=== PATIENT | female | born 1970 | race Caucasian/White ===

== ENCOUNTER 2016-12-16 14:50 | Outpatient (CLI) | payer OTHER | END 2016-12-16 14:51 | disposition home or self-care (01) | DX: Z12.31 Encounter for screening mammogram for malignant neoplasm of breast (principal); N60.89 Other benign mammary dysplasias of unspecified breast ==

== ENCOUNTER 2017-05-28 07:46 | Outpatient (CLI) | payer OTHER ==
--- NOTE | 2017-05-28 14:37 | MRI Report ---
EXAM: RIGHT KNEE MRI WITHOUT CONTRAST EXAM DATE: 05/28/2017 08:46 AM. CLINICAL HISTORY: RIGHT KNEE PAIN. COMPARISON: None. TECHNIQUE: Multiplanar, multisequence T1-weighted and fluid-sensitive sequences of the knee without c ontrast. Other: None. FINDINGS: Bones: No fractures or subluxations. Patella martín. Tricompartmental osteoarthritis with small osteoph ytes, juxtaarticular reactive marrow edema in the lateral trochlea and medial tibial plateau. Focal r eactive subcortical edema is also present adjacent to the medial posterior meniscal root attachment. Mild edema in the fibular head, reactive to mild proximal tibiofibular joint osteoarthritis. No bone lesions. 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 Grade 3 cartilaginous degeneration with thinning and irregular surface in the patella, both femoral condyles. Medial Meniscus: A small radial tear in the posterior meniscal root of the medial meniscus. Diffuse d egenerative signal in the body and both horns. Lateral Meniscus: The lateral meniscus is intact. Cruciate Ligaments: The anterior and posterior cruciate ligaments are intact. Collateral Ligaments: Mild grade 1 sprain of the medial collateral ligament with mild surrounding ollie ma. The posterior oblique and the lateral collateral ligaments are intact. Tendons: The quadriceps, patellar, semimembranosus, and popliteus tendons are unremarkable. Musculature: No edema or fatty atrophy. Other: Mild to moderate effusion with mild synovitis and mild lipoma arborescens. No popliteal cyst. No loose bodies. The medial and lateral retinacula, patellofemoral ligaments and iliotibial band are intact. No bursitis. The subcutaneous tissues and fat pads are unremarkable. IMPRESSION: 1. A small radial tear in the posterior meniscal root of the medial meniscus associated with focal re active subcortical edema in the meniscal root attachment. Diffuse degenerative signal in the body and both horns. 2. Mild grade 1 sprain of the medial collateral ligament. 3. Tricompartmental osteoarthritis with small osteophytes, juxtaarticular reactive marrow edema in th e lateral trochlea and medial tibial plateau. No fracture. 4. 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 Grade 3 cartilaginous degeneration with thinning and irregular surface in the patella, both femoral condyles. 5. Mild to moderate effusion with mild synovitis and mild lipoma arborescens. No loose bodies. 6. Patella martín. [facility] MUSCULOSKELETAL RADIOLOGY SECTION Referring Provider Line: [phone] SITE ID: [id number]
== END 2017-05-28 07:47 | disposition home or self-care (01) ==
LOC: DI 07:46
PROVIDERS: ATTEND Family Medicine
DX: M25.561 Pain in right knee (principal); M25.461 Effusion, right knee; S83.241A Other tear of medial meniscus, current injury, right knee, initial encounter; S83.411A Sprain of medial collateral ligament of right knee, initial encounter; M17.11 Unilateral primary osteoarthritis, right knee